=== PATIENT | male | born 1980 | race Caucasian/White ===

== ENCOUNTER 2023-10-07 18:28 | Emergency (ER) | payer SELFPAY ==
[2023-10-07 18:45] VITALS: BP 136/94; O2SAT 99
--- NOTE | 2023-10-07 20:48 | ED Physician Documentation ---
PD HPI HEENT - Stated complaint Stated Complaint: LT EAR PX - Chief complaint Chief Complaint: Heent - History obtained from History obtained from: Patient - History of Present Illness Timing - onset: How many days ago (2) Timing - duration: Days (2) Timing - details: Gradual onset, Still present Location: Left ear, Tooth Improves: Medication Worsens: Everything Associated symptoms: Swollen nodes, Facial swelling, Headache. No: Fever, Congestion, Rhinorrhea Similar symptoms before: Diagnosis (bad tooth and OM) Recently seen: Not recently seen - Additional information Additional information: Van Larios is a 43-year-old male who presents today with pain to the left jaw radiating into his ear. He relates a story that he had some difficulty with his left ear and travels across the [facility] and was treated with some antibiotic and resolved that problem. He has also had about a year ago a bad tooth in the left lower jaw he was treated with an antibiotic then and that resolved as well. He is now complaining of pain in the left ear and popping and pain along the jaw with swelling under the jaw. Review of Systems Constitutional: denies: Fever Eyes: denies: Decreased vision Ears: reports: Ear pain Nose: denies: Rhinorrhea / runny nose, Congestion Throat: reports: Dental pain / toothache. denies: Sore throat Cardiac: denies: Chest pain / pressure, Palpitations Respiratory: denies: Dyspnea, Cough GI: denies: Abdominal Pain PD PAST MEDICAL HISTORY - Past Medical History Past Medical History: Yes Other Past Medical History: scoliosis - Past Surgical History Past Surgical History: No - Present Medications Home Medications: Ambulatory Orders Medication Instructions Recorded Confirmed Clindamycin [Cleocin] 300 mg PO Q6H 7 Days #28 cap 10/07/23 HYDROcod/ACETAM 5/325 [[place] 5/325] 1 - 2 tablet PO Q6H PRN #14 tablet 10/07/23 - Allergies Allergies/Adverse Reactions: Allergies Allergy/AdvReac Type Severity Reaction Status Date / Time No Known Drug Allergies Allergy Verified 10/07/23 18:36 - Social History Does the pt smoke?: Yes Smoking Status: Current some day smoker PD ED PE NORMAL - Vitals Vital signs reviewed: Yes (hypertensive mild ) - General General: Alert and oriented X 3, No acute distress, Well developed/nourished - HEENT HEENT: Atraumatic, PERRL, EOMI, Other (broken tender L lower molar no fluctuance to the gingival buccal recess. ) - Neck Neck: Supple, no meningeal sign, No bony TTP - Respiratory Respiratory: No respiratory distress - Derm Derm: Normal color, Warm and dry, No rash - Extremities Extremities: No deformity, No edema - Neuro Neuro: Alert and oriented X 3, plant tender 2-12 intact, No motor deficit, No sensory deficit, Normal speech Eye Opening: Spontaneous Motor: Obeys Commands Verbal: Oriented GCS Score: 15 - Psych Psych: Normal mood, Normal affect Results - Vitals Vitals: Vital Signs - 24 hr 10/07/23 10/07/23 18:34 21:24 Temperature 36.7 C 36.7 C Heart Rate 77 77 Respiratory 16 16 Rate Blood Pressure 136/94 H 136/94 H O2 Saturation 99 99 Oxygen O2 Source Room air PD Medical Decision Making - ED course Complexity details: considered differential, d/w patient ED course: 43-year-old male with a broken lower molar and pain is administered clindamycin and hydrocodone. Departure - Departure Disposition: 01 Home, Self Care Clinical Impression: Dental infection Condition: Stable Instructions: ED Abscess Tooth Prescriptions: Clindamycin [Cleocin] 300 mg PO Q6H 7 Days #28 cap HYDROcod/ACETAM 5/325 [[place] 5/325] 1 - 2 tablet PO Q6H PRN #14 tablet PRN Reason: Pain Comments: Van, today it looks like you have an abscessed tooth and we are putting you on some antibiotic to only take 4 times per day. I have also E scribed some narcoti c pain reliever to the [facility] in [place]. The antibiotic we are using is clindamycin. The expectation with treatment is slow and steady improvement in your symptoms over the next 1 to 3 days. I have given you the name of clinics in the area for follow-up. Forms: PCP List Discharge Date/Time: 10/07/23 21:26
[2023-10-07] MEDS: HYDROcod/ACETAM 5/325 MG TABLET PO STA (21:12)
[2023-10-07] MEDS: CLINDAMYCIN 150 MG CAPSULE PO STA (21:12)
[2023-10-07] MEDS: HYDROcod/ACET 5/325 Prepack 4 PO STA (21:13)
== END 2023-10-07 21:26 | disposition home or self-care (01) ==
LOC: ED 18:28
DX: K04.7 Periapical abscess without sinus (principal); F17.200 Nicotine dependence, unspecified, uncomplicated
CPT/HCPCS: 99282; 99283; A9270